=== PATIENT | female | born 1985 | race Two or more races ===

== ENCOUNTER → 2019-12-14 | Outpatient (CLI) | payer OTHER | END | disposition home or self-care (01) | LOC: PRENATAL 11:00 | PROVIDERS: ATTEND Obstetrics & Gynecology Maternal & Fetal Medicine | DX: O99.89 Other specified diseases and conditions complicating pregnancy, childbirth and the puerperium (principal); O35.3XX0 Maternal care for (suspected) damage to fetus from viral disease in mother, not applicable or unspecified; O99.212 Obesity complicating pregnancy, second trimester; Z36.89 Encounter for other specified antenatal screening ==

== ENCOUNTER → 2020-03-27 | Outpatient (CLI) | payer OTHER | END | disposition home or self-care (01) | LOC: PRENATAL 03-26 14:30 | PROVIDERS: ATTEND Obstetrics & Gynecology Maternal & Fetal Medicine | DX: O26.843 Uterine size-date discrepancy, third trimester (principal); O35.0XX1 Maternal care for (suspected) central nervous system malformation in fetus, fetus 1; Z36.89 Encounter for other specified antenatal screening; Z3A.35 35 weeks gestation of pregnancy ==

== ENCOUNTER 2020-04-11 15:00 | Inpatient (IN) | payer OTHER ==
[~2020-04-11] VITALS: Ht 165.1 cm; Wt 108.9 kg
[2020-04-24] MEDS ORDERED: PRENATAL TABLE1 EAC1 PO (10:45)
== END 2020-04-26 14:08 | disposition home or self-care (01) | DRG 807 ==
LOC: EDSTATUS 15:00 → LDR 04-24 08:41 → SURG-SUITE 04-24 08:41 → OB/GYN 04-24 17:00 → SURG-SUITE 04-24 17:30 → OB/GYN 04-26 15:00
PROVIDERS: ADMIT Obstetrics & Gynecology; ATTEND Obstetrics & Gynecology
PROC: 10E0XZZ Delivery of Products of Conception, External Approach (ICD-10-PCS; principal; 2020-04-24)
PROC: 0KQM0ZZ Repair Perineum Muscle, Open Approach (ICD-10-PCS; 2020-04-24)
PROC: 4A0HXFZ Measurement of Products of Conception, Cardiac Rhythm, External Approach (ICD-10-PCS; 2020-04-24)
DX: O70.1 Second degree perineal laceration during delivery (principal); Z37.0 Single live birth; Z3A.39 39 weeks gestation of pregnancy; Z20.828 Contact with and (suspected) exposure to other viral communicable diseases